=== PATIENT | male | born 1975 | race Caucasian/White ===

== ENCOUNTER 2020-08-01 10:39 | Emergency (ER) | payer SELFPAY ==
[2020-08-01] MEDS ORDERED: NALOXONE HCL 2 MG/2 ML VIAL ONE ×2 (11:06→11:43)
[2020-08-01 11:08] LABS: Absolute Lymphocytes (CBC) 1.3 K/uL (0.7-4.9); Basophils % 0.3 % (0-1.3); Hematocrit 46.8 % (39.6-49.0); Lymphocytes % 6.5 % (15.3-44.8); MPV 8.7 fL (7.6-11.3); RBC Red Blood Cell Count 4.94 M/uL (4.33-5.43)
[2020-08-01 11:13] LABS: Arterial Blood Carboxyhemoglob 5.1 % (0-1.5); Blood Gas Oxyhemoglobin 89.2 % (94-97); Blood O2 Saturation 94.9 % (92-98.5)
[2020-08-01 11:15] LABS: Protime INR 1.15
[2020-08-01] MEDS ORDERED: NALOXONE IV ONE (11:15)
[2020-08-01] MEDS ORDERED: NA CHLORIDE 0.9% IV ONE (11:15)
[2020-08-01 11:40] LABS: ALT/SGPT 43 U/L (12-78); AST/SGOT 44 U/L (15-37); Albumin 3.4 g/dL (3.4-5.0); Alkaline Phosphatase 133 U/L (45-117); BUN Blood Urea Nitrogen 14 mg/dL (7-18); Bicarbonate 25 mmol/L (21-32); Bilirubin Direct 0.3 mg/dL (0-0.2); Bilirubin Total 0.7 mg/dL (0.2-1.0); Glucose Level 180 mg/dL (74-106); Potassium 3.6 mmol/L (3.5-5.1); Protein, Total 8.6 g/dL (6.4-8.2); Sodium Level 139 mmol/L (136-145)
[2020-08-01] MEDS ORDERED: NA CHLORIDE 0.9% 2,000 ML ONE (11:43)
--- NOTE | 2020-08-01 11:43 | RAD REPORT ---
EXAM DESCRIPTION: CT - [id number] - 08/01/2020 11:24 am CLINICAL HISTORY: altered mental status, unresponsive COMPARISON: No comparisons TECHNIQUE: Axial 5 mm thick images of the head were obtained. Axial 2 mm thick images of the cervic al spine were obtained with sagittal and coronal reconstruction images generated and reviewed. All CT scans are performed using dose optimization technique as appropriate and may include automated exposure control or mA/KV adjustment according to patient size. FINDINGS: No intracranial hemorrhage, mass, edema or acute intracranial finding. No suspicion for ac agustin infarction. No extra-axial fluid collections. Mastoid air cells are clear. No acute paranasal sin us finding. No globe or orbit abnormality seen. Cervical body height and alignment are normal. No disk space narrowing. No fracture or acute bony abn ormality. Central canal detail is inherently limited. Prominent left-sided cervical lymph nodes are suspected but not accurately assessed on this study. rway tubing has been placed via the right nasal passage. Tip of the airway abuts the epiglottis. Chaparro oid and tonsillar tissue appears prominent. Assessment is limited in the acute setting with airway de vice is in place. IMPRESSION: Negative CT head examination for acute or significant finding. No acute cervical vertebral or disc abnormality identifiable. Central canal detail is inherently limi miah. Tonsillar and pharyngeal tissues are prominent. However, accurate assessment cannot be made on the ce rvical spine study. The presence of an airway device alters tissues precluding definitive assessment. Left-sided cervical lymph nodes are present. These findings can be re- addressed on the patient luis s recovered from the current event.
[2020-08-01 11:51] LABS: Barbiturates NEGATIVE (NEGATIVE); Benzodiazepines POSITIVE (NEGATIVE); Cocaine NEGATIVE (NEGATIVE); METHAMPHETAM POSITIVE (NEGATIVE); Methadone NEGATIVE (NEGATIVE); Opiates POSITIVE (NEGATIVE); Phencyclidine NEGATIVE (NEGATIVE); THC Cannibis POSITIVE (NEGATIVE)
[2020-08-01 12:07] LABS: Blood Morphology Comment NOT SEEN (NOT SEEN); Platelet Estimate ADEQ; White Blood Cell Scan OK (OK)
--- NOTE | 2020-08-01 12:34 | RAD REPORT ---
EXAM DESCRIPTION: Phuc Single View08/01/2020 12:26 pm CLINICAL HISTORY: Shortness of breath COMPARISON: none FINDINGS: The lungs appear clear of acute infiltrate. The heart is normal size IMPRESSION: No acute abnormalities displayed
[2020-08-01 12:59] LABS: Arterial Blood Carboxyhemoglob 3.4 % (0-1.5); Blood Gas Oxyhemoglobin 94.2 % (94-97); Blood O2 Saturation 98.4 % (92-98.5)
[2020-08-01 13:38] LABS: Urine Appearance CLOUDY (Clear); Urine Blood NEGATIVE (Negative); Urine Color DK YELLOW (Yellow); Urine Glucose TRACE (Negative); Urine Protein 2+ (Negative)
[2020-08-01 13:41] LABS: Urine Bilirubin 1+ (Negative)
[2020-08-01 13:42] LABS: Urine Microscopic Reflex ORDER UMIC
[2020-08-01 13:48] LABS: Urine Bacteria <20 /HPF (NONE SEEN); Urine RBC <5 /HPF (NONE SEEN)
--- NOTE | 2020-08-01 18:42 | EDPHYS ---
Physician Documentation [facility] Name: Gearrd Asif Age: 45 yrs Sex: Male : 1975 Arrival Date: 08/01/2020 Time: 10:43 Bed 17 Private MD: ED Physician Judith Potts HPI: 08/01 11:05 This 45 yrs old Male presents to ER via EMS with complaints of Unresponsive. cp 11:05 The patient's problem is reported as altered mental status, decreased responsiveness. cp Onset: The symptoms/episode began/occurred at an unknown time. Duration: The episode is continuous. Context: Found by "friend" this morning at local hotel. EMS reports giving patient total of 3 mg Narcan with improved response. Historical: - Allergies: 11:22 Unable to obtain; tw2 - Home Meds: 11:22 Unable to obtain [Active]; tw2 - PMHx: 11:22 Unable to obtain; tw2 - PSHx: 11:22 Unable to obtain; tw2 - Immunization history:: Adult Immunizations unknown. - Social history:: Smoking status: unknown. ROS: 11:07 Neuro: Positive for altered mental status. cp 11:07 Constitutional: Negative for fever. cp 11:07 Unable to obtain ROS due to altered mental status. Exam: 11:07 ECG was reviewed by the Attending Physician. cp 11:28 Head/Face: Normocephalic, atraumatic. cp 11:28 Constitutional: The patient appears non-diaphoretic, non-toxic, well developed, well nourished. 11:28 Eyes: Pupils: pinpoint, bilaterally, Conjunctiva: normal, no exudate, no injection, Lids and lashes: appear normal, bilaterally. 11:28 ENT: External ear(s): are unremarkable, Ear canal(s): are normal, clear, Nose: is normal, Posterior pharynx: Airway: no evidence of obstruction, patent. 11:28 Chest/axilla: Inspection: normal, Palpation: is normal, no crepitus, no tenderness. 11:28 Cardiovascular: Rate: tachycardic, Rhythm: regular. 11:28 Respiratory: mild respiratory distress is noted, Respirations: shallow respirations, that is mild, Breath sounds: are clear throughout, no decreased breath sounds, no stridor, no wheezing. 11:28 Abdomen/GI: Inspection: abdomen appears normal, Bowel sounds: active, all quadrants, Palpation: abdomen is soft and non-tender, in all quadrants. 12:00 Radiologist reports: no acute findings cp Vital Signs: 10:43 Pulse Ox 88% on R/A; tw2 10:45 BP 145 / 76 RL (auto/); Pulse 111; Resp 17; Pulse Ox 97% on Non-rebreather mask; tw2 11:37 Temp 96.8(TE); tw2 11:46 BP 128 / 77; Pulse 100; Resp 18; Pulse Ox 100% on Non-rebreather mask; tw2 12:00 BP 136 / 87; Pulse 93; Resp 18; Pulse Ox 100% on Non-rebreather mask; tw2 12:15 BP 126 / 88; Pulse 93; Resp 18; Pulse Ox 100% on Non-rebreather mask; tw2 12:30 BP 128 / 83; Pulse 92; Resp 18; Pulse Ox 100% on Non-rebreather mask; tw2 12:45 BP 113 / 79; Pulse 90; Resp 17; Pulse Ox 100% on Non-rebreather mask; tw2 13:31 BP 118 / 80; Pulse 91; Resp 19; Pulse Ox 100% on Non-rebreather mask; tw2 14:30 BP 112 / 74; Pulse 89; Resp 18; Pulse Ox 100% on Non-rebreather mask; tw2 15:01 BP 124 / 78; Pulse 86; Resp 18; Pulse Ox 100% on Non-rebreather mask; tw2 16:00 BP 116 / 76; Pulse 90; Resp 18; Pulse Ox 100% on Non-rebreather mask; tw2 17:18 BP 118 / 71; Pulse 90; Resp 17; Pulse Ox 100% on R/A; tw2 18:30 BP 107 / 66; Pulse 89; Resp 17; Pulse Ox 98% on R/A; tw2 10:43 pt has NPA in RIGHT nare, providers NORMA Leigh and DOMONIQUE Sheldonblood or blood bank technician at bedside tw2 Stephie Coma Score: 11:28 Eye Response: none(1). Verbal Response: none(1). Motor Response: withdraws from cp pain(4). Total: 6. MDM: 10:45 Patient medically screened. ma2 11:00 Differential diagnosis: CVA, metabolic disorder, drug effects, trauma. cp 18:39 Data reviewed: vital signs, nurses notes, lab test result(s), EKG, radiologic studies, cp CT scan, plain films. Test interpretation: by ED physician or midlevel provider: ECG, plain radiologic studies. Counseling: I had a detailed discussion with the patient and/or guardian regarding: the historical points, exam findings, and any diagnostic results supporting the discharge/admit diagnosis, lab results, radiology results, to return to the emergency department if symptoms worsen or persist or if there are any questions or concerns that arise at home. Response to treatment: the patient's symptoms have markedly improved after treatment. ED course: VSS. Patient alert, ambulating w/o assistance, no signs of respiratory distress. Will discharge to home for continued monitoring. 08/01 10:45 Order name: Acetaminophen; Complete Time: 11:53 ma2 08/01 10:45 Order name: Basic Metabolic Panel; Complete Time: 11:53 ma2 08/01 14:04 Interpretation: Normal except: GLUC 180; CRE 1.96; GFR 38. cp 08/01 10:45 Order name: CBC with Diff; Complete Time: 14:03 ma2 08/01 11:21 Interpretation: Normal except: WBC 19.90; PACHECO% 88.1; LYM% 6.5; NEUT A 17.5. cp 08/01 10:45 Order name: ETOH Level; Complete Time: 11:53 ma2 08/01 10:45 Order name: Hepatic Function; Complete Time: 11:53 ma2 08/01 14:04 Interpretation: Normal except: AST 44; ALK 133; BILID 0.3; TP 8.6; GLOB 5.2; A/G 0.7. cp 08/01 10:45 Order name: PT-INR; Complete Time: 11:53 ma2 08/01 10:45 Order name: Ptt, Activated; Complete Time: 11:53 ma2 08/01 10:45 Order name: Salicylate; Complete Time: 14:03 ma2 08/01 14:03 Interpretation: MAGALYS < 1.7; Reviewed. cp 08/01 10:45 Order name: Urine Drug Screen; Complete Time: 11:53 ma2 08/01 11:53 Interpretation: Normal except: BZO POSITIVE; METHAMPHETAMINE POSITIVE; THC POSITIVE; cp OPI POSITIVE. 08/01 10:51 Order name: ABG cp 08/01 10:51 Order name: CK cp 08/01 10:51 Order name: ABG Arterial Blood Gas; Complete Time: 11:53 EDMS 08/01 10:51 Order name: Creatine Phosphokinase; Complete Time: 14:03 EDMS 08/01 10:53 Order name: Troponin I; Complete Time: 14:03 cp 08/01 10:45 Order name: EKG; Complete Time: 10:46 ma2 08/01 10:45 Order name: EKG - Nurse/Tech; Complete Time: 11:20 ma2 08/01 10:45 Order name: IV Saline Lock; Complete Time: 10:53 ma2 08/01 10:45 Order name: Labs collected and sent; Complete Time: 10:53 ma2 08/01 10:45 Order name: Urine Dipstick-Ancillary (obtain specimen); Complete Time: 12:30 ma2 08/01 11:12 Order name: CT Head C Spine; Complete Time: 11:53 cp 08/01 11:54 Order name: XRAY Chest (1 view); Complete Time: 14:03 cp 08/01 12:06 Order name: CBC Smear Scan; Complete Time: 14:03 EDMS 08/01 12:34 Order name: UA; Complete Time: 14:03 iw 08/01 14:03 Interpretation: Normal except: UBILI 1+; UPROT 2+. cp 02 12:59 Order name: ABG Arterial Blood Gas; Complete Time: 14:03 EDMS 08/01 13:42 Order name: Urine Microscopic Only; Complete Time: 14:03 EDMS 08/01 10:53 Order name: Cath; Complete Time: 11:26 cp EC:07 Rate is 110 beats/min. Rhythm is regular. ID interval is normal. QRS interval is cp prolonged at 102 msec. QT interval is normal. T waves are Inverted in lead aVR. Interpreted by me. Reviewed by me. Administered Medications: 10:51 Drug: NARcan 1 mg Route: IVP; Site: left forearm; iw 12:28 Follow up: Response: No adverse reaction; No change in condition tw2 11:29 Drug: NARcan 2 mg Route: IVP; Site: left antecubital; tw2 11:31 Follow up: Response: No change in condition; Other; RASS: Unarousable (-5); RASS: tw2 Unarousable (-5), provider notified 11:31 Drug: NS 0.9% 1000 ml Route: IV; Rate: 1 bolus; Site: left antecubital; tw2 15:00 Follow up: Response: No adverse reaction; IV Status: Completed infusion; IV Intake: tw2 1000ml 11:31 Drug: NS 0.9% 1000 ml Route: IV; Rate: 1 bolus; Site: left antecubital; tw2 15:00 Follow up: Response: No adverse reaction; IV Status: Completed infusion; IV Intake: tw2 1000ml 11:37 Drug: NARcan 10 mg Route: IVP; Rate: 3 mg/hr; Site: left antecubital; tw2 15:00 Follow up: Response: No adverse reaction; No change in condition tw2 Disposition: 19:15 Chart complete. cp Disposition: 08/01/20 18:41 Discharged to Home. Impression: Adverse effect of other opioids, Adverse effect of amphetamines. - Condition is Stable. - Discharge Instructions: Opioid Overdose, Stimulant Use Disorder-Methamphetamines. - Medication Reconciliation Form, Thank You Letter, Antibiotic Education, Prescription Opioid Use form. - Follow up: Private Physician; When: 1 - 2 days; Reason: Recheck today's complaints. - Problem is new. - Symptoms have improved. Addendum: 08/03/2020 18:37 Co-signature as Attending Physician, Judith Potts MD. m a2 Signatures: Dispatcher [employer] Monalisa Chan RN RN iw Page, Corey, PA PA cp Fidelia Gr RN RN [facility] Judith Potts MD MD md2 Corrections: (The following items were deleted from the chart) 04 18:42 18:41 08/01/2020 18:41 Discharged to Home. Impression: Adverse effect of other opioids. cp Condition is Stable. Forms are Medication Reconciliation Form, Thank You Letter, Antibiotic Education, Prescription Opioid Use. Follow up: Private Physician; When: 1 - 2 days; Reason: Recheck today's complaints. Problem is new. Symptoms have improved. cp 19:04 18:42 08/01/2020 18:41 Discharged to Home. Impression: Adverse effect of other opioids; tw2 Adverse effect of amphetamines. Condition is Stable. Discharge Instructions: Opioid Overdose, Stimulant Use Disorder-Methamphetamines. Forms are Medication Reconciliation Form, Thank You Letter, Antibiotic Education, Prescription Opioid Use. Follow up: Private Physician; When: 1 - 2 days; Reason: Recheck today's complaints. Problem is new. Symptoms have improved. cp
--- NOTE | 2020-08-01 18:42 | ER ---
Nurse's Notes [facility] Name: Gerard Asif Age: 45 yrs Sex: Male : 1975 Arrival Date: 08/01/2020 Time: 10:43 Bed 17 Private MD: Diagnosis: Adverse effect of other opioids;Adverse effect of amphetamines Presentation: 08/01 10:45 Chief complaint: EMS states: pt found unresponsive by a friend in hotel, was foaming at tw2 this mouth, we stuck in an NPA, gave 3mg narcan, minimal responsiveness noted, pt still unresponsive. Ebola Screen: Patient denies travel to an Ebola-affected area in the 21 days before illness onset. Initial Sepsis Screen: Does the patient meet any 2 criteria? Yes Does the patient have a suspected source of infection? No. Patient's initial sepsis screen is negative. Risk Assessment: Do you want to hurt yourself or someone else? Unable to obtain. Onset of symptoms was August 01, 2020. 10:45 Acuity: JESUS 2 tw2 10:45 Method Of Arrival: EMS: [facility] tw2 19:03 Coronavirus screen: At this time, unable to obtain information related to travel tw2 outside the [place] Triage Assessment: 10:45 General: Appears in no apparent distress. Behavior is unresponsive. Pain: Unable to use tw2 pain scale. Patient is unresponsive. Neuro: Level of Consciousness is unresponsive, Oriented to none Reaction to noxious stimuli is withdrawal and facial grimacing. Cardiovascular: Capillary refill < 3 seconds. Respiratory: Airway via nasal trumpet with NRB on 15L Respiratory effort is shallow, Respiratory pattern is snoring. GI: Abdomen is round non-distended. : No signs and/or symptoms were reported regarding the genitourinary system. Musculoskeletal:. Historical: - Allergies: 11:22 Unable to obtain; tw2 - Home Meds: 11:22 Unable to obtain [Active]; tw2 - PMHx: 11:22 Unable to obtain; tw2 - PSHx: 11:22 Unable to obtain; tw2 - Immunization history:: Adult Immunizations unknown. - Social history:: Smoking status: unknown. Screenin:46 Abuse screen: Denies threats or abuse. Nutritional screening: No deficits noted. tw2 Tuberculosis screening: No symptoms or risk factors identified. Fall Risk Secondary diagnosis (15 points) impaired mobility. Assessment: 10:45 Reassessment: see triage assessment. tw2 11:46 Reassessment: No changes from previously documented assessment. Patient and/or family tw2 updated on plan of care and expected duration. Pain level reassessed. 12:42 Reassessment: No changes from previously documented assessment. Patient and/or family tw2 updated on plan of care and expected duration. Pain level reassessed. 13:31 Reassessment: No changes from previously documented assessment. Patient and/or family tw2 updated on plan of care and expected duration. Pain level reassessed. 15:01 Reassessment: No changes from previously documented assessment. Narcan IV infusion tw2 completed, provider notified, no further orders at this time, no change in pts condition. 16:00 Reassessment: No changes from previously documented assessment. Patient and/or family tw2 updated on plan of care and expected duration. Pain level reassessed. 17:19 Reassessment: No changes from previously documented assessment. Patient and/or family tw2 updated on plan of care and expected duration. Pain level reassessed. pt noted to be on side, NPA remains in RIGHT nare, pt had removed NRB, 100%RA, provider notified. 18:29 Reassessment: Patient and/or family updated on plan of care and expected duration. Pain tw2 level reassessed. Patient is alert, oriented x 3, equal unlabored respirations, skin warm/dry/pink. pt states "you can call Mi at [phone] to come get me", provider notified. 19:03 Reassessment: No changes from previously documented assessment. Patient and/or family tw2 updated on plan of care and expected duration. Pain level reassessed. Patient is alert, oriented x 3, equal unlabored respirations, skin warm/dry/pink. Vital Signs: 10:43 Pulse Ox 88% on R/A; tw2 10:45 BP 145 / 76 RL (auto/); Pulse 111; Resp 17; Pulse Ox 97% on Non-rebreather mask; tw2 11:37 Temp 96.8(TE); tw2 11:46 BP 128 / 77; Pulse 100; Resp 18; Pulse Ox 100% on Non-rebreather mask; tw2 12:00 BP 136 / 87; Pulse 93; Resp 18; Pulse Ox 100% on Non-rebreather mask; tw2 12:15 BP 126 / 88; Pulse 93; Resp 18; Pulse Ox 100% on Non-rebreather mask; tw2 12:30 BP 128 / 83; Pulse 92; Resp 18; Pulse Ox 100% on Non-rebreather mask; tw2 12:45 BP 113 / 79; Pulse 90; Resp 17; Pulse Ox 100% on Non-rebreather mask; tw2 13:31 BP 118 / 80; Pulse 91; Resp 19; Pulse Ox 100% on Non-rebreather mask; tw2 14:30 BP 112 / 74; Pulse 89; Resp 18; Pulse Ox 100% on Non-rebreather mask; tw2 15:01 BP 124 / 78; Pulse 86; Resp 18; Pulse Ox 100% on Non-rebreather mask; tw2 16:00 BP 116 / 76; Pulse 90; Resp 18; Pulse Ox 100% on Non-rebreather mask; tw2 17:18 BP 118 / 71; Pulse 90; Resp 17; Pulse Ox 100% on R/A; tw2 18:30 BP 107 / 66; Pulse 89; Resp 17; Pulse Ox 98% on R/A; tw2 10:43 pt has NPA in RIGHT nare, providers NORMA Leigh and DOMONIQUE Sheldoncharge entry clerk at bedside tw2 [place] Coma Score: 11:28 Eye Response: none(1). Verbal Response: none(1). Motor Response: withdraws from cp pain(4). Total: 6. ED Course: 10:43 Patient arrived in ED. tw2 10:45 Judith Potts MD is Attending Physician. ma2 10:45 Bed in low position. Call light in reach. Side rails up X2. monitoring tech on. Pulse tw2 ox on. NIBP on. Warm blanket given. 10:46 Triage completed. tw2 10:46 Arm band placed on. tw2 10:48 Gino Forrest PA is PHCP. cp 10:58 Fidelia Gr RN is Primary Nurse. tw2 11:15 Straight cath inserted, using sterile technique, 18 Fr. Specimen obtained. Returned tw2 DOMONIQUE Sheldon served as red cap. Patient tolerated. 11:23 Maintain EMS IV. Dressing intact. Good blood return noted. Site clean \\T\\ dry. Gauge \\T\\ tw 2 site: 20 g LEFT ac. 11:24 CT Head C Spine In Process Unspecified. EDMS 11:26 Awaiting: medication fr pharmacy. tw2 12:26 XRAY Chest (1 view) In Process Unspecified. EDMS 19:03 No provider procedures requiring assistance completed. IV discontinued, intact, tw2 bleeding controlled, No redness/swelling at site. Pressure dressing applied. Administered Medications: 10:51 Drug: NARcan 1 mg Route: IVP; Site: left forearm; iw 12:28 Follow up: Response: No adverse reaction; No change in condition tw2 11:29 Drug: NARcan 2 mg Route: IVP; Site: left antecubital; tw2 11:31 Follow up: Response: No change in condition; Other; RASS: Unarousable (-5); RASS: tw2 Unarousable (-5), provider notified 11:31 Drug: NS 0.9% 1000 ml Route: IV; Rate: 1 bolus; Site: left antecubital; tw2 15:00 Follow up: Response: No adverse reaction; IV Status: Completed infusion; IV Intake: tw2 1000ml 11:31 Drug: NS 0.9% 1000 ml Route: IV; Rate: 1 bolus; Site: left antecubital; tw2 15:00 Follow up: Response: No adverse reaction; IV Status: Completed infusion; IV Intake: tw2 1000ml 11:37 Drug: NARcan 10 mg Route: IVP; Rate: 3 mg/hr; Site: left antecubital; tw2 15:00 Follow up: Response: No adverse reaction; No change in condition tw2 Intake: 15:00 IV: 1000ml; Total: 1000ml. tw2 15:00 IV: 1000ml; Total: 2000ml. tw2 Outcome: 18:41 Discharge ordered by . cp 19:03 Discharged to home via wheelchair. tw2 19:03 Condition: stable 19:03 Discharge instructions given to patient, Instructed on discharge instructions, follow up and referral plans. Demonstrated understanding of instructions, follow-up care. 19:04 Patient left the ED. tw2 Signatures: Dispatcher [employer] Monalisa Chan RN RN iw Gino Forrest PA PA cp Wise, Tara, RN RN tw2 Judith Potts MD MD ma2 Corrections: (The following items were deleted from the chart) 14:59 11:37 NARcan 10 mg IVP at 3 mg/hr in left antecubital tw2 tw2 14:59 12:28 Response: No change in condition; provider notified tw2 17:19 17:18 BP 118 / 71; Pulse 90bpm; Resp 17bpm; Pulse Ox 100% Nebulizer Mask; tw2 2 17:36 17:19 Reassessment: No changes from previously documented assessment. Patient and/or tw2 family updated on plan of care and expected duration. Pain level reassessed. tw2
[2020-08-02 07:49] VITALS: TEMP 96.8
[2020-08-02 08:08] VITALS: BP 107/66; O2SAT 98
== END 2020-08-01 19:04 | disposition home or self-care (01) ==
LOC: ER 10:39
DX: R41.82 Altered mental status, unspecified (principal); T40.2X5A Adverse effect of other opioids, initial encounter; T43.625A Adverse effect of amphetamines, initial encounter
CPT/HCPCS: 36415; 51702; 70450; 71045; 72125; 80048; 80076; 80307; 80320; 80329; 81003; 81015; 82550; 82805; 84484; 85025; 85610; 85730; 93005; 99291; 99292; J2310; J7030; J7050